=== PATIENT | male | born 1945 | race Caucasian/White ===

== ENCOUNTER 2019-01-01 06:44 | Day surgery (SDC) | payer OTHER ==
[2019-01-01] MEDS ORDERED: fentaNYL 100 MCG/2 ML SDV ONE ×2 (06:52→09:32)
[2019-01-01] MEDS ORDERED: Propofol 200 MG/20 ML SDV ONE ×2 (06:53→07:29)
[2019-01-01] MEDS ORDERED: Midazolam 1 MG/ML 2 ML SDV ONE (06:53)
[2019-01-01] MEDS ORDERED: Bupivacaine 0.5% 50 ML MDV ONE (07:03)
[2019-01-01] MEDS ORDERED: Lidocaine 1% with EPINEPHrine 1:100,000 50 ML MDV ONE (07:03)
[2019-01-01] MEDS ORDERED: Neostigmine Methylsulfate 1 MG/ML 5 ML Syringe ONE (07:29)
[2019-01-01] MEDS ORDERED: Glycopyrrolate 0.2 MG/ML 5 ML MDV ONE (07:29)
[2019-01-01] MEDS ORDERED: Dexamethasone 4 MG/ML SDV ONE (07:29)
[2019-01-01] MEDS ORDERED: Rocuronium 50 MG/5 ML Vial ONE (07:29)
[2019-01-01] MEDS ORDERED: Ondansetron 4 MG/2 ML SDV ONE (07:29)
[2019-01-01] MEDS ORDERED: Acetaminophen 500 MG Tab PO ONE (07:30)
[2019-01-01] MEDS: Dextrose 5%-Lactated Ringers 1,000 ML IV SCH ×2 (07:57→13:00)
[2019-01-01] MEDS ORDERED: Albuterol/Ipratropium 3.0-0.5 MG/3 ML Neb Soln NEB ONE (08:00)
[2019-01-01] MEDS ORDERED: ceFAZolin 2 GM in Premix Bag 1 BAG IV ONE (08:45)
[2019-01-01] MEDS ORDERED: Ketorolac 60 MG/2 ML SDV ONE (10:14)
[2019-01-01] MEDS ORDERED: Acetaminophen/oxyCODONE 325-5 MG Tab PO PRN (11:41)
[2019-01-01] MEDS ORDERED: Ondansetron 4 MG/2 ML SDV IVPUSH PRN (11:42)
[2019-01-01] MEDS ORDERED: Gabapentin 400 MG Cap PO SCH (12:00)
[2019-01-01] MEDS: GABAPENTIN 800 MG PO SCH ×3 (13:04→21:22)
[2019-01-01] MEDS: Ibuprofen 600 MG Tab PO SCH ×3 (13:04→21:21)
[2019-01-01] MEDS: ceFAZolin 2 GM in Premix Bag 1 BAG IV SCH ×2 (16:47→23:41)
[2019-01-01] MEDS: SYMBICORT INH SCH ×2 (18:10→21:22)
[2019-01-01] MEDS ORDERED: Tamsulosin 0.4 MG Cap.ER PO ONE (19:30)
[2019-01-01] MEDS ORDERED: Lidocaine 2% Jelly 10 ML Urojet MUCMEM ONE (19:56)
[2019-01-02] MEDS ORDERED: Tamsulosin 0.4 MG Cap.ER PO ONE (02:00)
[2019-01-02] MEDS: GABAPENTIN 800 MG PO SCH (05:33)
[2019-01-02] MEDS: Ibuprofen 600 MG Tab PO SCH (08:44)
[2019-01-02] MEDS: SYMBICORT INH SCH (08:47)
[2019-01-02] MEDS ORDERED: Hydrochlorothiazide 12.5 MG Cap PO SCH (09:00)
[2019-01-02] MEDS ORDERED: LISINOPRIL PO SCH (09:00)
[2019-01-02] MEDS ORDERED: Lisinopril 20 MG Tab PO SCH (09:00)
[2019-01-02] MEDS ORDERED: HCTZ PO SCH (09:00)
--- NOTE | 2019-01-03 05:55 | DISCH ---
ADMISSION DIAGNOSIS: Left inguinal hernia. DISCHARGE DIAGNOSES: Left inguinal hernia repair with mesh, excision of left inguinal nerve. Date of surgery 01/01/2019. Surgeon, Maximino Bejarano MD. HISTORY: Misha Vyas is a 73-year-old male with left inguinal hernia. After preoperative evaluation and discussion of possible risks and possible complications, he wished to proceed with surgical procedure. HOSPITAL COURSE: Misha had his surgery on 01/01/2019. He had some difficulty with urinary retention and the Becerril catheter was put back in. He was started on Flomax. He was able to void on postoperative day 1 and was able to be discharged to home. PHYSICAL EXAMINATION: GENERAL: Misha Vyas is a 73-year-old male. VITAL SIGNS: Height is 5 feet 5 inches, weight is 157 pounds. BMI is 26. TPR is 98.2, 87, 16 and blood pressure was 103/70 then prior to discharge it was 155/94. HEENT: Negative. NECK: Supple. HEART: Regular rate and rhythm. LUNGS: Clear. ABDOMEN: Left inguinal incision is stapled. Dressing dry and intact. His athletic supporter was on prior to discharge and no peripheral edema. DISPOSITION: Discharged to home. CONDITION: Stable and improving. FOLLOWUP APPOINTMENT: Leyda Newman PA-C, on 01/09/2019 at 9:00 a.m. NEW PRESCRIPTIONS: 1. Flomax 0.4 mg daily #14. 2. He is to take Symbicort as directed 2 puffs twice a day. 3. Vitamin D3, 2000 units oral daily. 4. Flonase 2 sprays in each nostril daily. 5. Neurontin 800 mg oral twice daily. 6. Garlic 2000 mg oral daily. 7. Lisinopril/HCTZ 20/12.5 mg oral daily. 8. Probiotic 2 tablets oral daily. 9. Naproxen 500 mg oral twice daily for pain. 10.Zocor 40 mg oral daily. 11.Saline nasal spray 1 spray in each nostril daily. DIET: Usual diet as tolerated. Drink 8 to 10 glasses of water a day. ACTIVITY: No lifting over 10 pounds for 6 weeks. Other activity, walk at least 6 times daily inside your house. Driving, do not drive for 1 week. Shower/bathing, may shower. Take off dressing tomorrow. DISCHARGE INSTRUCTIONS: Notify provider if any fever, increased pain, nausea, vomiting, swelling, redness or drainage. Wound incision care, keep site clean and dry. Wear athletic supporter for 2 weeks. SPECIAL INSTRUCTIONS: Use incentive spirometer 10 times every hour while awake for 1 week.
--- NOTE | 2019-01-06 10:48 | OR ---
DATE OF PROCEDURE: 01/01/2019 PREOPERATIVE DIAGNOSIS: Incarcerated left inguinal hernia. POSTOPERATIVE DIAGNOSES: 1. Incarcerated left inguinal hernia. 2. 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 OPERATIVE PROCEDURE: Left inguinal exploration with: 1. Repair of incarcerated left inguinal hernia with mesh (18449). 2. Excision of the left ilioinguinal nerve (02757). ANESTHESIA: General. ASSISTANTS: 1. Leyda Newman PA-C. 2. SATHYA Muniz. INDICATIONS FOR PROCEDURE: This is a 73-year-old presenting with enlarging left inguinal hernia, at this point is not entirely reducible and probably contains some sigmoid colon within it. Plan is to proceed with an open repair of incarcerated left inguinal hernia with mesh plug technique. The potential risks of procedure including bleeding, infection, injury to underlying viscera, and problems with mesh becoming infected or hernia recurring, as well as remote possibility of cardiopulmonary, septic, or hemorrhagic complications leading to were discussed, and the patient wishes to proceed. Additionally, the aspect of the ilioinguinal nerve often becoming entrapped by scarring or creating chronic postoperative neuropathic pain was reviewed, and the fact that we will often excise that nerve so as to avoid both problems postoperatively was gone over with the idea that the patient would substitute the risk of neuropathic pain with an area of anesthesia in the area of inguinal region, and the patient likewise wishes to proceed. DETAILS OF PROCEDURE: The patient was taken to the operating room and placed in a supine position. After general endotracheal anesthesia was induced, the abdomen and groin areas were prepped and draped. A standard left inguinal incision was made and carried down through the skin and subcutaneous tissue and through the external oblique aponeurosis. Subrectus flaps were raised superiorly and inferiorly. The left ilioinguinal nerve was intact in the field where the mesh would be placed, and this was excised out to the lateral aspect of the incision and sent for histologic evaluation. The cord structures were mobilized upward and from the hernia sac. This appeared to be a combined direct and indirect inguinal hernia. It was quite broad-based. The hernia sac was dissected back down towards the internal ring and away from the inguinal floor, and the transversalis fascia over the hernia incised. This allowed reduction of the hernia in both components, and the dissection underneath the conjoint tendon was then accomplished medially, superiorly, and laterally. Initially, an extra large mesh plug was placed medially across the floor. This was affixed to the pubic bone with Capture titanium screws and then affixed to the medial and superior aspect of the conjoint tendon on its underside with horizontal mattress sutures of 2-0 Vicryl stitch. This appeared to be somewhat inadequate to prevent recurrence of the hernia from the indirect component. Given this, a large mesh plug was placed laterally. This was affixed also inferiorly to the Pieter's ligament with titanium tacking screws and then also affixed the edges of the first mesh with horizontal mattress stitch, both of these mesh plugs together to the underside of the conjoint tendon and the remaining attachments to the superior and lateral aspect of the conjoint tendon on the underside of the mesh was accomplished with the same sutures. Some sutures were then placed at the inguinal ligament shelving portion inferiorly as well, to prevent recurrence in that direction. At that point, the area appeared to be satisfactorily occluded. The conjoint tendon was then sutured down to the shelving portion of the inguinal ligament medially and then extending laterally to the level of the internal ring. Flat mesh plug system was then placed across the floor and sutured laterally to these cord structures with some 3-0 Vicryl stitch. The external oblique aponeurosis was approximated with 3-0 Vicryl stitch, as was Alicia's fascia, and the skin closed with chika. Prior to closure, the inguinal floor and skin were anesthetized with some 0.5% Marcaine. The patient was taken to the recovery room in safe and satisfactory condition. There were no other complications. Physician miner assistant, Leyda Newman PA-C, played an essential role in assisting in this case, helping to position the patient, retract structures as needed, as well as suturing and cutting sutures when indicated. Her presence improved the patient's safety and decreased the operative time. Maximino Bejarano MD /[id number]
== END 2019-01-02 10:45 | disposition home or self-care (01) ==
LOC: JP.SDS 06:44 → JP.2SS 10:10 → JP.SDS 01-02 10:45
PROVIDERS: ATTEND Surgery
DX: K40.30 Unilateral inguinal hernia, with obstruction, without gangrene, not specified as recurrent (principal); I10 Essential (primary) hypertension; E78.5 Hyperlipidemia, unspecified; J44.9 Chronic obstructive pulmonary disease, unspecified; J32.9 Chronic sinusitis, unspecified; G47.33 Obstructive sleep apnea (adult) (pediatric); G89.29 Other chronic pain; M54.5 Low back pain; Z99.89 Dependence on other enabling machines and devices; Z79.51 Long term (current) use of inhaled steroids; Z79.899 Other long term (current) drug therapy
CPT/HCPCS: 36415; 51702; 80053; 83735; 83880; 84100; 85027; 88302; 94762; A9270-GY; C1781; J0690; J1100; J1885; J2250; J2405; J2704; J2710; J3010; J3490; J7042; J7620-GY